=== PATIENT | female | born 1940 | race Caucasian/White ===

== ENCOUNTER 2017-03-24 17:29 | Inpatient (IN) | payer MEDICARE ==
[~2017-03-24] VITALS: Ht 167.6 cm; Wt 61.2 kg
[2017-03-24 19:38] LABS: BASOPHILS 0.1 % (0-2); EOSINOPHILS 0.5 % (0-7); HEMATOCRIT 37.5 % (36.0-48.0); HEMOGLOBIN 12.2 g/dL (12-16); IMMATURE GRANULOCYTES 0.3 % (0-5); LYMPHOCYTES 14.9 % (15-50); MCH 30.1 pg (26.0-34.0); MCHC 32.5 g/dL (31.0-37.0); MCV 92.6 fL (80.0-100.0); NEUTROPHILS 74.2 % (40-80); PLATELET COUNT 273 10x3/uL (130-400); RBC 4.05 10x6/uL (4.00-5.40); RDW 14.2 % (11.5-14.5); WBC 11.1 10x3/uL (4.8-10.8)
[2017-03-24 20:07] LABS: ALBUMIN 3.1 g/dL (3.4-5.0); ALKALINE PHOSPHATASE 80 U/L (46-116); ALT (SGPT) 22 U/L (10-68); BILIRUBIN - TOTAL 0.41 mg/dL (0.2-1.3); CALC OSMOLALITY 284 mosm/kg (275-300); CALCIUM 9.8 mg/dL (8.5-10.1); CARBON DIOXIDE 31.2 mmol/L (21.0-32.0); CHLORIDE - SERUM 102 mmol/L (98-107); CREATININE - SERUM 0.9 mg/dL (0.6-1.3); GLUCOSE 99 mg/dL (74-106); POTASSIUM - SERUM 4.5 mmol/L (3.5-5.1); PROTEIN - SERUM 6.5 g/dL (6.4-8.2); SODIUM 140 mmol/L (136-145); UREA NITROGEN 30 mg/dL (7-18); eGFR NON AFRICAN AMERICAN 65 mL/min (90-120)
[2017-03-24 20:15] LABS: CREATINE KINASE 83 UL (21-215)
[2017-03-24 20:21] LABS: TROPONIN-I < 0.017 ng/mL (0.000-0.060)
[2017-03-24 22:47] LABS: APPEARANCE HAZY (CLEAR); BILIRUBIN NEGATIVE (NEGATIVE); COLOR YELLOW (YELLOW); GLUCOSE NEGATIVE (NEGATIVE); KETONE NEGATIVE (NEGATIVE); NITRITE POSITIVE (NEGATIVE); PROTEIN TRACE mg/dL (NEGATIVE); SPECIFIC GRAVITY 1.025 (1.005-1.020); UROBILINOGEN NORMAL (NORMAL)
[2017-03-24 22:48] LABS: BACTERIA MANY /hpf (NONE SEEN)
[2017-03-25] VITALS (7 sets, daily range): BP systolic 108–140; BP diastolic 57–68; Ht 167.6 cm; Wt 61.2 kg
[2017-03-25 03:33] LABS: BASOPHILS 0.4 % (0-2); EOSINOPHILS 1.3 % (0-7); HEMATOCRIT 37.7 % (36.0-48.0); HEMOGLOBIN 11.8 g/dL (12-16); IMMATURE GRANULOCYTES 0.2 % (0-5); LYMPHOCYTES 28.6 % (15-50); MCH 29.4 pg (26.0-34.0); MCHC 31.3 g/dL (31.0-37.0); MEAN PLATELET VOLUME 12.7 fL (7.4-10.4); MONOCYTES 9.6 % (2-11); NEUTROPHILS 59.9 % (40-80); RBC 4.01 10x6/uL (4.00-5.40); RDW 14.4 % (11.5-14.5)
[2017-03-25 03:36] LABS: PLATELET COUNT 213 10x3/uL (130-400); WBC 5.2 10x3/uL (4.8-10.8)
[2017-03-25 03:45] LABS: ALBUMIN 2.7 g/dL (3.4-5.0); ANION GAP 7.7 mmol/L (8-16); BILIRUBIN - TOTAL 0.32 mg/dL (0.2-1.3); CALCIUM 9.3 mg/dL (8.5-10.1); CARBON DIOXIDE 33.5 mmol/L (21.0-32.0); CREATININE - SERUM 0.8 mg/dL (0.6-1.3); POTASSIUM - SERUM 4.2 mmol/L (3.5-5.1); PROTEIN - SERUM 5.8 g/dL (6.4-8.2)
[2017-03-26 05:51] LABS: BASOPHILS 0.2 % (0-2); EOSINOPHILS 0.7 % (0-7); HEMOGLOBIN 10.8 g/dL (12-16); IMMATURE GRANULOCYTES 0.2 % (0-5); LYMPHOCYTES 16.4 % (15-50); MCH 29.8 pg (26.0-34.0); MCHC 31.8 g/dL (31.0-37.0); MCV 93.9 fL (80.0-100.0); MEAN PLATELET VOLUME 12.3 fL (7.4-10.4); MONOCYTES 9.2 % (2-11); NEUTROPHILS 73.3 % (40-80); PLATELET COUNT 218 10x3/uL (130-400); RBC 3.62 10x6/uL (4.00-5.40); RDW 14.4 % (11.5-14.5)
[2017-03-26 05:52] VITALS: BP 117/69
[2017-03-26 05:57] LABS: WBC 9.6 10x3/uL (4.8-10.8)
[2017-03-26 05:59] LABS: CALC OSMOLALITY 281 mosm/kg (275-300); CALCIUM 8.8 mg/dL (8.5-10.1); CARBON DIOXIDE 29.2 mmol/L (21.0-32.0); CHLORIDE - SERUM 104 mmol/L (98-107); GLUCOSE 81 mg/dL (74-106); POTASSIUM - SERUM 3.7 mmol/L (3.5-5.1); SODIUM 140 mmol/L (136-145); UREA NITROGEN 24 mg/dL (7-18)
[2017-03-26 06:13] LABS: CREATININE - SERUM 0.4 mg/dL (0.6-1.3); eGFR NON AFRICAN AMERICAN > 90 mL/min (90-120)
[2017-03-26 08:35] VITALS: BP 120/72
[2017-03-26 11:40] VITALS: BP 136/78
[2017-03-26 15:34] VITALS: BP 122/82
[2017-03-26 19:00] VITALS: BP 141/68
[2017-03-27 04:00] VITALS: BP 160/79
[2017-03-27 06:43] LABS: BASOPHILS 0.1 % (0-2); EOSINOPHILS 2.6 % (0-7); HEMATOCRIT 33.9 % (36.0-48.0); HEMOGLOBIN 10.7 g/dL (12-16); IMMATURE GRANULOCYTES 0.4 % (0-5); LYMPHOCYTES 19.2 % (15-50); MCH 29.6 pg (26.0-34.0); MCHC 31.6 g/dL (31.0-37.0); MCV 93.6 fL (80.0-100.0); MEAN PLATELET VOLUME 12.3 fL (7.4-10.4); MONOCYTES 9.5 % (2-11); NEUTROPHILS 68.2 % (40-80); PLATELET COUNT 209 10x3/uL (130-400); RBC 3.62 10x6/uL (4.00-5.40); RDW 14.2 % (11.5-14.5); WBC 7.8 10x3/uL (4.8-10.8)
[2017-03-27 06:57] LABS: CALC OSMOLALITY 284 mosm/kg (275-300); CALCIUM 8.7 mg/dL (8.5-10.1); CARBON DIOXIDE 28.6 mmol/L (21.0-32.0); CHLORIDE - SERUM 107 mmol/L (98-107); CREATININE - SERUM 0.5 mg/dL (0.6-1.3); GLUCOSE 110 mg/dL (74-106); POTASSIUM - SERUM 3.3 mmol/L (3.5-5.1); SODIUM 142 mmol/L (136-145); eGFR NON AFRICAN AMERICAN > 90 mL/min (90-120)
[2017-03-27 07:02] LABS: UREA NITROGEN 15 mg/dL (7-18)
[2017-03-27 08:04] VITALS: BP 178/81
[2017-03-27 11:34] VITALS: BP 163/82
[2017-03-27] MEDS ORDERED: LEVAQUIN500 MG PO (11:48)
[2017-03-27 15:37] VITALS: BP 145/68
[2017-03-27 21:26] VITALS: BP 167/80
[2017-03-28 01:29] VITALS: BP 122/56
[2017-03-28 07:58] VITALS: BP 166/73
[2017-03-28 11:24] VITALS: BP 174/84
[2017-03-28 15:35] VITALS: BP 157/77
[2017-03-28 21:27] VITALS: BP 155/64
[2017-03-29 01:46] VITALS: BP 168/74
[2017-03-29 05:07] LABS: BASOPHILS 0.2 % (0-2); EOSINOPHILS 5.1 % (0-7); HEMATOCRIT 33.7 % (36.0-48.0); HEMOGLOBIN 10.8 g/dL (12-16); IMMATURE GRANULOCYTES 0.4 % (0-5); MCH 29.8 pg (26.0-34.0); MCV 93.1 fL (80.0-100.0); MEAN PLATELET VOLUME 12.1 fL (7.4-10.4); MONOCYTES 11.7 % (2-11); NEUTROPHILS 50.6 % (40-80); PLATELET COUNT 227 10x3/uL (130-400); RBC 3.62 10x6/uL (4.00-5.40)
[2017-03-29 05:15] LABS: WBC 5.1 10x3/uL (4.8-10.8)
[2017-03-29 05:34] LABS: CALC OSMOLALITY 279 mosm/kg (275-300); CALCIUM 8.4 mg/dL (8.5-10.1); CHLORIDE - SERUM 105 mmol/L (98-107); CREATININE - SERUM 0.5 mg/dL (0.6-1.3); GLUCOSE 94 mg/dL (74-106); SODIUM 142 mmol/L (136-145); UREA NITROGEN 4 mg/dL (7-18); eGFR NON AFRICAN AMERICAN > 90 mL/min (90-120)
[2017-03-29 05:35] LABS: POTASSIUM - SERUM 2.9 mmol/L (3.5-5.1)
[2017-03-29 05:40] VITALS: BP 180/80
[2017-03-29 08:10] VITALS: BP 176/74
[2017-03-29 11:23] VITALS: BP 118/66
[2017-03-29 15:31] VITALS: BP 114/60
[2017-03-29 19:00] VITALS: BP 163/73
[2017-03-30 04:00] VITALS: BP 187/78
[2017-03-30 07:42] VITALS: BP 114/65
[2017-03-30 11:26] VITALS: BP 176/82
[2017-03-30 12:29] LABS: BASOPHILS 0.2 % (0-2); EOSINOPHILS 3.9 % (0-7); HEMATOCRIT 37.9 % (36.0-48.0); HEMOGLOBIN 12.4 g/dL (12-16); IMMATURE GRANULOCYTES 0.2 % (0-5); LYMPHOCYTES 26.6 % (15-50); MCHC 32.7 g/dL (31.0-37.0); MCV 91.8 fL (80.0-100.0); MEAN PLATELET VOLUME 11.5 fL (7.4-10.4); MONOCYTES 10.6 % (2-11); NEUTROPHILS 58.5 % (40-80); PLATELET COUNT 236 10x3/uL (130-400); RBC 4.13 10x6/uL (4.00-5.40); RDW 13.8 % (11.5-14.5); WBC 5.9 10x3/uL (4.8-10.8)
[2017-03-30 12:37] LABS: CALC OSMOLALITY 275 mosm/kg (275-300); CALCIUM 9.2 mg/dL (8.5-10.1); CARBON DIOXIDE 30.4 mmol/L (21.0-32.0); CHLORIDE - SERUM 103 mmol/L (98-107); CREATININE - SERUM 0.4 mg/dL (0.6-1.3); GLUCOSE 98 mg/dL (74-106); SODIUM 140 mmol/L (136-145); UREA NITROGEN 3 mg/dL (7-18); eGFR NON AFRICAN AMERICAN > 90 mL/min (90-120)
[2017-03-30 12:40] LABS: POTASSIUM - SERUM 3.5 mmol/L (3.5-5.1)
[2017-03-30 15:35] VITALS: BP 172/80
[2017-03-30 20:46] VITALS: BP 160/75
[2017-03-30 23:44] VITALS: BP 178/83
[2017-03-31 04:46] VITALS: BP 191/93
[2017-03-31 05:40] LABS: BASOPHILS 0.2 % (0-2); EOSINOPHILS 5.4 % (0-7); HEMATOCRIT 33.1 % (36.0-48.0); HEMOGLOBIN 10.6 g/dL (12-16); IMMATURE GRANULOCYTES 0.2 % (0-5); LYMPHOCYTES 36.3 % (15-50); MCH 29.6 pg (26.0-34.0); MCV 92.5 fL (80.0-100.0); MEAN PLATELET VOLUME 11.8 fL (7.4-10.4); MONOCYTES 10.8 % (2-11); NEUTROPHILS 47.1 % (40-80); RBC 3.58 10x6/uL (4.00-5.40); WBC 5.6 10x3/uL (4.8-10.8)
[2017-03-31 05:52] LABS: PLATELET COUNT 167 10x3/uL (130-400)
[2017-03-31 06:26] LABS: CALC OSMOLALITY 279 mosm/kg (275-300); CALCIUM 8.9 mg/dL (8.5-10.1); CARBON DIOXIDE 25.7 mmol/L (21.0-32.0); CHLORIDE - SERUM 106 mmol/L (98-107); CREATININE - SERUM 0.3 mg/dL (0.6-1.3); GLUCOSE 95 mg/dL (74-106); POTASSIUM - SERUM 3.9 mmol/L (3.5-5.1); SODIUM 142 mmol/L (136-145); UREA NITROGEN 3 mg/dL (7-18); eGFR NON AFRICAN AMERICAN > 90 mL/min (90-120)
[2017-03-31 08:36] VITALS: BP 190/86
[2017-03-31 12:15] VITALS: BP 175/83
[2017-03-31 15:06] VITALS: BP 174/81
[2017-03-31 19:00] VITALS: BP 163/74
[2017-04-01 08:01] LABS: HEMATOCRIT 33.7 % (36.0-48.0); HEMOGLOBIN 11.2 g/dL (12-16); LYMPHOCYTES 23.4 % (15-50); MCHC 33.2 g/dL (31.0-37.0); MEAN PLATELET VOLUME 10.9 fL (7.4-10.4); NEUTROPHILS 65.5 % (40-80); RBC 3.73 10x6/uL (4.00-5.40); RDW 13.6 % (11.5-14.5); WBC 6.3 10x3/uL (4.8-10.8)
[2017-04-01 08:02] LABS: MCV 90.3 fL (80.0-100.0); PLATELET COUNT 232 10x3/uL (130-400)
[2017-04-01 08:08] VITALS: BP 188/89
[2017-04-01 08:25] LABS: CALCIUM 9.2 mg/dL (8.5-10.1); CARBON DIOXIDE 31.3 mmol/L (21.0-32.0); CHLORIDE - SERUM 106 mmol/L (98-107); GLUCOSE 94 mg/dL (74-106); POTASSIUM - SERUM 3.7 mmol/L (3.5-5.1); SODIUM 144 mmol/L (136-145)
[2017-04-01 08:27] LABS: CALC OSMOLALITY 284 mosm/kg (275-300); CREATININE - SERUM 0.4 mg/dL (0.6-1.3); UREA NITROGEN 8 mg/dL (7-18); eGFR NON AFRICAN AMERICAN > 90 mL/min (90-120)
[2017-04-01 11:37] VITALS: BP 188/85
[2017-04-01 16:01] VITALS: BP 150/74
== END 2017-04-01 17:05 | disposition home health service (06) | DRG 683 ==
LOC: D.ER 17:29 → D.M2 23:11 → OBSVTIME 23:11 → D.M2 03-25 15:18
PROVIDERS: Emergency Medicine; Family Medicine; Internal Medicine Nephrology
DX: N17.9 Acute kidney failure, unspecified (principal); N39.0 Urinary tract infection, site not specified; I69.951 Hemiplegia and hemiparesis following unspecified cerebrovascular disease affecting right dominant side; R47.01 Aphasia; I95.9 Hypotension, unspecified; E86.0 Dehydration; I10 Essential (primary) hypertension